=== PATIENT | female | born 1945 | race Caucasian/White ===

== ENCOUNTER 2022-12-13 07:05 | Emergency (ER) | payer MEDICARE, OTHER ==
[2022-12-13] MEDS ORDERED: methylPREDNISolone Sod Succ/PF 125 MG/2 ML VIAL ONE (07:54)
[2022-12-13 08:04] LABS: #Basophils 0.1 thou/uL (0.0-0.2); #Eosinphils 0.3 thou/uL (0.0-0.7); #Monocytes 0.7 thou/uL (0.11-0.59); #Neutrophils 9.5 thou/uL (1.40-6.50); %Basophils 0.6 % (0.0-1.0); %Eosinophils 2.3 % (0.0-10.0); %Lymphocytes 19.8 % (21.0-51.0); %Monocytes 5.2 % (0.0-10.0); %Neutrophils 71.9 % (42.0-75.0); Hematocrit 37.1 % (36.0-47.0); Mean Corpuscular HGB CONC 32.3 g/dL (32.0-36.0); Mean Corpuscular Hemoglobin 30.7 pg (27.0-31.0); Mean Corpuscular Volume 94.9 fl (78.0-98.0); Mean Platelet Volume 9.3 fL (7.4-10.4); Platelet Count 373 10x3/uL (130-400); RBC Distribution Width 14.4 % (11.5-14.5); Red Blood Cell (RBC) Count 3.91 mill/uL (4.20-5.40); White Blood Cell (WBC) Count 13.3 10x3/uL (4.8-10.8)
[2022-12-13] MEDS ORDERED: Ipratropium/Albuterol 3 ML NEB ONE (08:08)
[2022-12-13 08:27] LABS: ALT (SGPT) 15 U/L (8-55); AST (SGOT) 17 U/L (5-34); Albumin 3.4 g/dL (3.4-4.8); Alkaline Phosphatase 88 U/L (40-110); Anion Gap 13 mmol/L (10-20); BUN (Urea Nitrogen) 17 mg/dL (9.8-20.1); Bilirubin, Total 0.3 mg/dL (0.2-1.2); Calc. Creatinine Clearance 0 mL/min (70-130); Calcium 8.8 mg/dL (7.8-10.44); Carbon Dioxide 23 mmol/L (23-31); Chloride 104 mmol/L (98-107); Estimated GFR 74; Globulin 5.3 g/dL (2.4-3.5); Glucose 105 mg/dL (83-110); Potassium 3.8 mmol/L (3.5-5.1); Protein, Total 8.7 g/dL (5.8-8.1); Sodium 136 mmol/L (136-145)
[2022-12-13 08:30] LABS: Troponin I 0.014 ng/mL (< 0.028)
== END 2022-12-13 10:25 | disposition home or self-care (01) ==
LOC: ERS 07:05
DX: J44.1 Chronic obstructive pulmonary disease with (acute) exacerbation (principal); F41.1 Generalized anxiety disorder; I10 Essential (primary) hypertension
CPT/HCPCS: 36415; 71045; 80053; 83880; 84484; 85025; 93005; 94640; 96374; J2930; J7620

== ENCOUNTER 2022-12-22 11:21 | Inpatient (IN) | payer MEDICARE, OTHER ==
[2022-12-22 11:59] LABS: Actual Bicarbonate (HCO3v) 25.4 mEq/L (22-28); Analyzer IN Cardio ER; Base Excess 1.7 mEq/L (-2.0 to +3.0); Calcium, Ionized (venous) 1.02 mmol/L (1.16-1.32); Chloride (VBG) 100 mmol/L (98-106); Hematocrit-VBG 42 % (36.0-47.0); Hemoglobin (Hb) 14.2 g/dL (11.7-16.1); Potassium (VBG) 4.22 mmol/L (3.70-5.30); Sodium 135 mmol/L (133-146); pH (venous) 7.456 (7.32-7.43)
[2022-12-22 12:09] LABS: #Basophils 0.1 thou/uL (0.0-0.2); #Eosinphils 0.1 thou/uL (0.0-0.7); #Neutrophils 13.2 thou/uL (1.40-6.50); %Basophils 0.3 % (0.0-1.0); %Eosinophils 0.4 % (0.0-10.0); %Lymphocytes 7.6 % (21.0-51.0); %Monocytes 6.6 % (0.0-10.0); %Neutrophils 84.7 % (42.0-75.0); Hematocrit 37.5 % (36.0-47.0); Hemoglobin 12.2 g/dL (12.0-16.0); Mean Corpuscular HGB CONC 32.5 g/dL (32.0-36.0); Mean Corpuscular Volume 92.4 fl (78.0-98.0); Mean Platelet Volume 9.1 fL (7.4-10.4); Platelet Count 381 10x3/uL (130-400); RBC Distribution Width 14.9 % (11.5-14.5); Red Blood Cell (RBC) Count 4.06 mill/uL (4.20-5.40); White Blood Cell (WBC) Count 15.6 10x3/uL (4.8-10.8)
[2022-12-22] MEDS ORDERED: Ipratropium/Albuterol 3 ML NEB ONE (12:13)
[2022-12-22 12:33] LABS: ALT (SGPT) 15 U/L (8-55); AST (SGOT) 14 U/L (5-34); Albumin 3.6 g/dL (3.4-4.8); Alkaline Phosphatase 98 U/L (40-110); Anion Gap 17 mmol/L (10-20); BUN (Urea Nitrogen) 16 mg/dL (9.8-20.1); Bilirubin, Total 2.4 mg/dL (0.2-1.2); Calc. Creatinine Clearance 0 mL/min (70-130); Calcium 9.1 mg/dL (7.8-10.44); Carbon Dioxide 25 mmol/L (23-31); Chloride 98 mmol/L (98-107); Estimated GFR 80; Globulin 5.4 g/dL (2.4-3.5); Glucose 90 mg/dL (83-110); Potassium 4.7 mmol/L (3.5-5.1); Sodium 135 mmol/L (136-145)
[2022-12-22] MEDS ORDERED: Ketorolac Tromethamine 30 MG/ML VIAL ONE (12:39)
[2022-12-22] MEDS ORDERED: Magnesium 2 GM/50 ML BAG (IN WATER) ONE (12:40)
[2022-12-22] MEDS ORDERED: Vancomycin 1 GM/200 ML (FROZEN) BAG ONE (13:09)
[2022-12-22 13:30] LABS: SARS-CoV-2 NAA Rapid Test Not Detected (NotDetected)
[2022-12-22] MEDS ORDERED: Iopamidol-370 76% 500 ML MDV (1 ML CHARGE) ONE (13:46)
[2022-12-22] MEDS ORDERED: Cefepime 2 GM VIAL ONE (14:21)
[2022-12-22] MEDS ORDERED: Sodium Chloride 0.9% 100 ML ONE (14:21)
[2022-12-22 15:37] LABS: Lactic Acid 1.2 mmol/L (0.5-2.2)
[2022-12-22 15:41] VITALS: BMI 15.6
[2022-12-22 15:45] LABS: Troponin I 0.014 ng/mL (< 0.028)
[2022-12-22] MEDS ORDERED: FLU VACC QS2023(65UP)/MF59C/PF 60 MCG/0.5 ML SYRINGE IM ONE (16:15)
[2022-12-22] MEDS ORDERED: Ipratropium/Albuterol 3 ML NEB NEB PRN (17:44)
[2022-12-22] MEDS ORDERED: predniSONE 20 MG TAB PO SCH (17:45)
[2022-12-22] MEDS ORDERED: Senokot S 8.6-50 MG TAB PO PRN (17:46)
[2022-12-22] MEDS ORDERED: Acetaminophen 325 MG TAB PO PRN ×2 (17:46→18:04)
[2022-12-22] MEDS ORDERED: Calcium Carbonate 500 MG ChewTAB PO PRN (17:46)
[2022-12-22] MEDS ORDERED: Azithromycin 500 MG in Sodium Chloride 0.9% 250 ML 250 ML IVPB SCH (18:00)
[2022-12-22 18:53] LABS: Troponin I 0.032 ng/mL (< 0.028)
[2022-12-22] MEDS: Ipratropium/Albuterol 3 ML NEB NEB SCH (19:19)
[2022-12-22] MEDS: Mometasone 200 MCG/Formoterol 5 MCG 120 PUFF INHALER INH SCH (19:20)
[2022-12-22] MEDS ORDERED: Nitroglycerin 0.4 MG TAB (25 Tab Bottle) SL PRN (19:25)
[2022-12-22] MEDS ORDERED: Famotidine 20 MG TAB PO SCH (21:00)
[2022-12-22] MEDS: guaiFENesin ER 600 MG TAB PO SCH (21:13)
[2022-12-22] MEDS: Heparin 5,000 UNITS/ML VIAL SC SCH (21:14)
[2022-12-23] MEDS: Ipratropium/Albuterol 3 ML NEB NEB SCH ×4 (01:52→19:26)
[2022-12-23] MEDS: Cefepime 1 GM in Sodium Chloride 0.9% 100 ML IVPB SCH ×2 (01:56→16:47)
[2022-12-23 05:02] LABS: #Monocytes 0.2 thou/uL (0.11-0.59); #Neutrophils 12.7 thou/uL (1.40-6.50); %Basophils 0.2 % (0.0-1.0); %Lymphocytes 1.9 % (21.0-51.0); %Monocytes 1.8 % (0.0-10.0); %Neutrophils 95.7 % (42.0-75.0); Hematocrit 32.7 % (36.0-47.0); Hemoglobin 10.6 g/dL (12.0-16.0); Mean Corpuscular HGB CONC 32.4 g/dL (32.0-36.0); Mean Corpuscular Hemoglobin 30.5 pg (27.0-31.0); Mean Corpuscular Volume 94.2 fl (78.0-98.0); Mean Platelet Volume 9.4 fL (7.4-10.4); Platelet Count 351 10x3/uL (130-400); RBC Distribution Width 14.7 % (11.5-14.5); Red Blood Cell (RBC) Count 3.47 mill/uL (4.20-5.40); White Blood Cell (WBC) Count 13.3 10x3/uL (4.8-10.8)
[2022-12-23 05:20] LABS: ALT (SGPT) 13 U/L (8-55); AST (SGOT) 8 U/L (5-34); Albumin 3.1 g/dL (3.4-4.8); Alkaline Phosphatase 86 U/L (40-110); Anion Gap 12 mmol/L (10-20); BUN (Urea Nitrogen) 18 mg/dL (9.8-20.1); Bilirubin, Total 0.8 mg/dL (0.2-1.2); Calc. Creatinine Clearance 39 mL/min (70-130); Calcium 8.6 mg/dL (7.8-10.44); Carbon Dioxide 23 mmol/L (23-31); Chloride 103 mmol/L (98-107); Estimated GFR 71; Globulin 4.8 g/dL (2.4-3.5); Glucose 190 mg/dL (83-110); Magnesium 2.6 mg/dL (1.6-2.6); Potassium 3.9 mmol/L (3.5-5.1); Protein, Total 7.9 g/dL (5.8-8.1); Sodium 134 mmol/L (136-145)
[2022-12-23 05:25] LABS: Troponin I 0.014 ng/mL (< 0.028)
[2022-12-23] MEDS: Mometasone 200 MCG/Formoterol 5 MCG 120 PUFF INHALER INH SCH ×2 (07:46→19:26)
[2022-12-23 07:58] LABS: Legionella Urinary Ag Negative (Negative)
[2022-12-23 08:13] LABS: Strep pneumo Urine Ag NEGATIVE (NEGATIVE)
[2022-12-23] MEDS: predniSONE 20 MG TAB PO SCH ×2 (08:17→16:48)
[2022-12-23] MEDS: Aspirin 81 mg Enteric Coated Tablet PO SCH (08:17)
[2022-12-23] MEDS: Heparin 5,000 UNITS/ML VIAL SC SCH ×2 (08:18→21:11)
[2022-12-23] MEDS: guaiFENesin ER 600 MG TAB PO SCH ×2 (08:31→21:11)
[2022-12-23] MEDS ORDERED: Losartan 25 MG TAB PO SCH (09:00)
[2022-12-23] MEDS: Famotidine 20 MG TAB PO SCH (21:11)
[2022-12-24] MEDS: Ipratropium/Albuterol 3 ML NEB NEB SCH ×4 (01:50→19:02)
[2022-12-24] MEDS: Cefepime 1 GM in Sodium Chloride 0.9% 100 ML IVPB SCH ×2 (02:48→13:56)
[2022-12-24 05:38] LABS: #Monocytes 0.8 thou/uL (0.11-0.59); #Neutrophils 17.7 thou/uL (1.40-6.50); %Basophils 0.1 % (0.0-1.0); %Lymphocytes 3.5 % (21.0-51.0); %Monocytes 4.1 % (0.0-10.0); %Neutrophils 91.6 % (42.0-75.0); Hematocrit 32.6 % (36.0-47.0); Hemoglobin 10.4 g/dL (12.0-16.0); Mean Corpuscular HGB CONC 31.9 g/dL (32.0-36.0); Mean Corpuscular Hemoglobin 30.2 pg (27.0-31.0); Mean Corpuscular Volume 94.8 fl (78.0-98.0); Mean Platelet Volume 9.2 fL (7.4-10.4); Platelet Count 403 10x3/uL (130-400); RBC Distribution Width 14.9 % (11.5-14.5); Red Blood Cell (RBC) Count 3.44 mill/uL (4.20-5.40); White Blood Cell (WBC) Count 19.3 10x3/uL (4.8-10.8)
[2022-12-24] MEDS: Mometasone 200 MCG/Formoterol 5 MCG 120 PUFF INHALER INH SCH ×2 (07:28→19:03)
[2022-12-24] MEDS: Losartan 25 MG TAB PO SCH (08:42)
[2022-12-24] MEDS: Aspirin 81 mg Enteric Coated Tablet PO SCH (08:42)
[2022-12-24] MEDS: predniSONE 20 MG TAB PO SCH ×2 (08:42→17:16)
[2022-12-24] MEDS: guaiFENesin ER 600 MG TAB PO SCH ×2 (08:42→21:19)
[2022-12-24] MEDS: Heparin 5,000 UNITS/ML VIAL SC SCH ×2 (08:44→21:17)
[2022-12-24] MEDS: Famotidine 20 MG TAB PO SCH (21:17)
[2022-12-25] MEDS: Ipratropium/Albuterol 3 ML NEB NEB SCH ×4 (00:25→19:02)
[2022-12-25] MEDS: Cefepime 1 GM in Sodium Chloride 0.9% 100 ML IVPB SCH ×2 (02:28→13:30)
[2022-12-25 05:00] LABS: #Monocytes 0.3 thou/uL (0.11-0.59); #Neutrophils 12.7 thou/uL (1.40-6.50); %Basophils 0.1 % (0.0-1.0); %Lymphocytes 4.8 % (21.0-51.0); %Monocytes 1.9 % (0.0-10.0); %Neutrophils 92.7 % (42.0-75.0); Hematocrit 32.2 % (36.0-47.0); Hemoglobin 10.2 g/dL (12.0-16.0); Mean Corpuscular HGB CONC 31.7 g/dL (32.0-36.0); Mean Corpuscular Volume 94.7 fl (78.0-98.0); Mean Platelet Volume 9.5 fL (7.4-10.4); Platelet Count 404 10x3/uL (130-400); RBC Distribution Width 14.7 % (11.5-14.5); White Blood Cell (WBC) Count 13.7 10x3/uL (4.8-10.8)
[2022-12-25 07:44] LABS: Anion Gap 13 mmol/L (10-20); BUN (Urea Nitrogen) 26 mg/dL (9.8-20.1); Calc. Creatinine Clearance 43 mL/min (70-130); Carbon Dioxide 25 mmol/L (23-31); Chloride 102 mmol/L (98-107); Estimated GFR 80; Glucose 110 mg/dL (83-110); Potassium 4.8 mmol/L (3.5-5.1); Sodium 135 mmol/L (136-145)
[2022-12-25] MEDS: Mometasone 200 MCG/Formoterol 5 MCG 120 PUFF INHALER INH SCH ×2 (07:54→19:02)
[2022-12-25] MEDS: Aspirin 81 mg Enteric Coated Tablet PO SCH (08:26)
[2022-12-25] MEDS: predniSONE 20 MG TAB PO SCH ×2 (08:26→17:22)
[2022-12-25] MEDS: Heparin 5,000 UNITS/ML VIAL SC SCH (08:27)
[2022-12-25] MEDS: Losartan 25 MG TAB PO SCH (08:27)
[2022-12-25] MEDS: guaiFENesin ER 600 MG TAB PO SCH (08:27)
[2022-12-25] MEDS ORDERED: Amlodipine 5 MG TAB PO SCH (12:15)
[2022-12-25] MEDS: Famotidine 20 MG TAB PO SCH (20:19)
[2022-12-25] MEDS: Amlodipine 5 MG TAB PO SCH (20:20)
[2022-12-26] MEDS: Ipratropium/Albuterol 3 ML NEB NEB SCH ×5 (00:44→21:55)
[2022-12-26] MEDS: Cefepime 1 GM in Sodium Chloride 0.9% 100 ML IVPB SCH ×2 (02:30→15:17)
[2022-12-26 04:33] LABS: #Monocytes 0.6 thou/uL (0.11-0.59); #Neutrophils 8.7 thou/uL (1.40-6.50); %Basophils 0.2 % (0.0-1.0); %Lymphocytes 8.3 % (21.0-51.0); %Monocytes 5.7 % (0.0-10.0); %Neutrophils 84.7 % (42.0-75.0); Hematocrit 34.9 % (36.0-47.0); Hemoglobin 11.2 g/dL (12.0-16.0); Mean Corpuscular HGB CONC 32.1 g/dL (32.0-36.0); Mean Corpuscular Hemoglobin 30.1 pg (27.0-31.0); Mean Corpuscular Volume 93.8 fl (78.0-98.0); Mean Platelet Volume 10.5 fL (7.4-10.4); Platelet Count 345 10x3/uL (130-400); RBC Distribution Width 14.7 % (11.5-14.5); Red Blood Cell (RBC) Count 3.72 mill/uL (4.20-5.40); White Blood Cell (WBC) Count 10.3 10x3/uL (4.8-10.8)
[2022-12-26 04:57] LABS: Anion Gap 16 mmol/L (10-20); BUN (Urea Nitrogen) 24 mg/dL (9.8-20.1); Calc. Creatinine Clearance 38 mL/min (70-130); Calcium 9.2 mg/dL (7.8-10.44); Carbon Dioxide 24 mmol/L (23-31); Chloride 100 mmol/L (98-107); Estimated GFR 70; Glucose 116 mg/dL (83-110); Potassium 4.1 mmol/L (3.5-5.1); Sodium 136 mmol/L (136-145)
[2022-12-26] MEDS: Mometasone 200 MCG/Formoterol 5 MCG 120 PUFF INHALER INH SCH ×2 (08:38→18:22)
[2022-12-26] MEDS ORDERED: Amlodipine 5 MG TAB PO SCH (09:00)
[2022-12-26] MEDS: Aspirin 81 mg Enteric Coated Tablet PO SCH (09:38)
[2022-12-26] MEDS: Losartan 25 MG TAB PO SCH (09:39)
[2022-12-26] MEDS: Amlodipine 5 MG TAB PO SCH ×2 (09:39→21:06)
[2022-12-26] MEDS: predniSONE 20 MG TAB PO SCH ×2 (09:39→15:24)
[2022-12-26] MEDS ORDERED: busPIRone HCl 5 MG TAB PO PRN (15:25)
[2022-12-26] MEDS: Famotidine 20 MG TAB PO SCH (21:06)
[2022-12-26 21:10] LABS: Mycoplasma pneumoniae IgG AB 266 U/mL (0-99); Mycoplasma pneumoniae IgM AB Less than 770 U/mL (0-769)
[2022-12-26 22:12] LABS: L.pneumophilia Abs 1.84 OD ratio (0.00-0.90)
[2022-12-27] MEDS: Cefepime 1 GM in Sodium Chloride 0.9% 100 ML IVPB SCH (01:36)
[2022-12-27] MEDS: Ipratropium/Albuterol 3 ML NEB NEB SCH (07:40)
[2022-12-27] MEDS: Mometasone 200 MCG/Formoterol 5 MCG 120 PUFF INHALER INH SCH (07:42)
[2022-12-27] MEDS: Losartan 25 MG TAB PO SCH (09:04)
[2022-12-27] MEDS: predniSONE 20 MG TAB PO SCH (09:05)
[2022-12-27] MEDS: Aspirin 81 mg Enteric Coated Tablet PO SCH (09:05)
[2022-12-27] MEDS: Amlodipine 5 MG TAB PO SCH (09:05)
[2022-12-27 11:36] VITALS: BP 161/77; TEMP 97.6
== END 2022-12-27 12:37 | disposition home or self-care (01) | DRG 871 ==
LOC: ERS 11:21 → 2NO 14:09
PROVIDERS: ADMIT Internal Medicine; ATTEND Internal Medicine
PROC: 4A043R1 Measurement of Venous Saturation, Peripheral, Percutaneous Approach (ICD-10-PCS; principal; 2022-12-22)
PROC: 3E03329 Introduction of Other Anti-infective into Peripheral Vein, Percutaneous Approach (ICD-10-PCS; 2022-12-22)
DX: A41.9 Sepsis, unspecified organism (principal); I21.A1 Myocardial infarction type 2; J18.9 Pneumonia, unspecified organism; J96.01 Acute respiratory failure with hypoxia; J44.1 Chronic obstructive pulmonary disease with (acute) exacerbation; E87.1 Hypo-osmolality and hyponatremia; Z79.899 Other long term (current) drug therapy; I10 Essential (primary) hypertension; Z90.89 Acquired absence of other organs; Z87.891 Personal history of nicotine dependence; Z11.52 Encounter for screening for COVID-19; R65.20 Severe sepsis without septic shock; R74.01 Elevation of levels of liver transaminase levels; Z90.710 Acquired absence of both cervix and uterus; Z79.82 Long term (current) use of aspirin; E88.09 Other disorders of plasma-protein metabolism, not elsewhere classified; Z79.01 Long term (current) use of anticoagulants
CPT/HCPCS: 36415; 71045; 71275; 80048; 80053; 82805; 83605; 83735; 83880; 84145; 84484; 85025; 86713; 87040; 87449; 87899; 93005; 93306; 94640; 94760; 96365; 96367; 96368; 96375; J0456; J0692; J1644; J1885; J3370-JW; J3475; J3490; J7050; J7512; J7620; Q9967